=== PATIENT | female | born 1970 | race Hispanic/Latino ===

== ENCOUNTER 2022-05-08 16:00 | Inpatient (IN) | payer OTHER ==
[~2022-05-08] VITALS: Ht 157.5 cm; Wt 64.5 kg
[2022-05-31 13:38] LABS: BASOPHILS % (AUTO) 0.3 % (0.0-5.0); HEMATOCRIT 43.6 % (36-48); LYMPHOCYTES % (AUTO) 29.4 % (21.0-51.0); MEAN CORPUSCULAR HEMOGLOBIN 28.2 pg (27.0-33.0); MEAN CORPUSCULAR VOLUME 85.5 fL (79-99); MONOCYTES % (AUTO) 6.1 % (3.0-13.0); PLATELET COUNT (AUTO) 261 K/uL (130-400); RED CELL DISTRIBUTION WIDTH 13.2 % (11.0-15.5); WHITE BLOOD COUNT (AUTO) 6.5 K/uL (4.8-10.8)
[2022-05-31] MEDS: CALDOLOR 800MG+NS 250ML 250 ML IV SCH (14:30)
[2022-05-31] MEDS: CEFAZOLIN SODIUM 1 GM VIAL IVP SCH (14:30)
[2022-06-01 09:06] VITALS: BP 138/75
[2022-06-01] MEDS ORDERED: BIOTIN PO (09:30)
[2022-06-01] MEDS ORDERED: GARLIC PO (09:30)
[2022-06-01] MEDS ORDERED: VITAMIN D PO (09:30)
[2022-06-04] VITALS (23 sets, daily range): BP systolic 94–148; BP diastolic 52–71
[2022-06-04] MEDS ORDERED: MORPHINE PF 100MG/10ML AMP IV ONE (05:13)
[2022-06-04] MEDS ORDERED: LACTATED RINGERS 1000ML 1,000 ML IV ONE (06:27)
[2022-06-04] MEDS ORDERED: LIDOCAINE PF 100MG/5ML (2%) SYRINGE 5ML ONE (07:04)
[2022-06-04] MEDS ORDERED: ROCURONIUM 10MG/1ML SYR 10 MG/ML ML ONE (07:05)
[2022-06-04] MEDS ORDERED: PROPOFOL 10 MG/ML 20ML VIAL IV ONE (07:05)
[2022-06-04] MEDS ORDERED: FENTANYL CITRATE PF 50 MCG/1 ML 2ML VIAL ONE (07:10)
[2022-06-04] MEDS ORDERED: MIDAZOLAM HCL 1 MG/ML 2ML VIAL ONE (07:10)
[2022-06-04] MEDS ORDERED: CEFAZOLIN SODIUM 2 GM VIAL IV ONE (07:20)
[2022-06-04] MEDS ORDERED: ONDANSETRON 4MG INJ ONE (07:24)
[2022-06-04] MEDS ORDERED: DEXAMETHASONE SOD PHOSPHATE 10MG/ML 1ML VIAL ONE (08:03)
[2022-06-04] MEDS ORDERED: NEOSTIGMINE 5MG/5ML SYR IV ONE (08:36)
[2022-06-04] MEDS ORDERED: GLYCOPYRROLATE 1 MG/5 ML SYRINGE ONE (08:36)
[2022-06-04] MEDS ORDERED: DIPH,PERTUSS(ACELL),TET VAC/PF 0.5 ML VIAL IM SCH (09:30)
[2022-06-04] MEDS ORDERED: HYDROCODONE/ACETAMINOPHEN 5/325 MG TAB PO PRN (09:30)
[2022-06-04] MEDS ORDERED: ONDANSETRON 4MG INJ IVP PRN (09:30)
[2022-06-04] MEDS ORDERED: BISACODYL 10 MG SUPP.RECT RC PRN ×2 (09:30)
[2022-06-04] MEDS ORDERED: PROMETHAZINE HCL 25 MG/ML 1ML AMPULE IM PRN ×3 (09:30→11:00)
[2022-06-04] MEDS ORDERED: MEPERIDINE-PF 75 MG/ML SYG IM PRN ×2 (09:30→11:00)
[2022-06-04] MEDS ORDERED: SIMETHICONE 80 MG TAB.CHEW PO PRN (09:30)
[2022-06-04] MEDS ORDERED: DOCUSATE SODIUM 100 MG CAP PO PRN (09:30)
[2022-06-04] MEDS ORDERED: ACETAMINOPHEN WITH CODEINE 1 TAB TAB PO PRN (09:30)
[2022-06-04] MEDS: DEXTROSE 5 %-0.45 % NACL 1,000 ML IV PRN ×2 (10:31→17:56)
[2022-06-04] MEDS: ACETAMINOPHEN WITH CODEINE 1 TAB TAB PO PRN (10:31)
[2022-06-04] MEDS: CEFAZOLIN SODIUM 1 GM VIAL IVP SCH (14:30)
[2022-06-04] MEDS: CALDOLOR 800MG+NS 250ML 250 ML IV SCH ×2 (14:30→17:50)
[2022-06-04] MEDS: DOCUSATE SODIUM 100 MG CAP PO PRN (21:35)
[2022-06-04] MEDS: SIMETHICONE 80 MG TAB.CHEW PO PRN (21:35)
[2022-06-05] MEDS: CALDOLOR 800MG+NS 250ML 250 ML IV SCH (01:56)
[2022-06-05] MEDS: DEXTROSE 5 %-0.45 % NACL 1,000 ML IV PRN (04:01)
[2022-06-05 04:03] VITALS: BP 94/44
[2022-06-05 07:30] VITALS: BP 98/59
[2022-06-05] MEDS: ACETAMINOPHEN WITH CODEINE 1 TAB TAB PO PRN ×3 (07:37→19:43)
[2022-06-05] MEDS ORDERED: ESTRADIOL 0.1 MG/24 HR PATCH (WEEKLY) TD SCH (09:00)
[2022-06-05] MEDS: DOCUSATE SODIUM 100 MG CAP PO PRN ×2 (09:30→19:42)
[2022-06-05] MEDS: SIMETHICONE 80 MG TAB.CHEW PO PRN ×3 (09:30→19:42)
[2022-06-05] MEDS: IBUPROFEN 800 MG TAB PO SCH ×2 (09:30→16:59)
[2022-06-05 11:54] VITALS: BP 108/72
[2022-06-05 16:23] VITALS: BP 115/75
[2022-06-05] MEDS ORDERED: HYDROCODONE/ACETAMINOPHEN 5/325 MG TAB PO PRN (19:00)
[2022-06-05 19:22] VITALS: BP 116/74
[2022-06-05 22:49] VITALS: BP 123/73
[2022-06-06] MEDS: IBUPROFEN 800 MG TAB PO SCH ×2 (01:16→08:54)
[2022-06-06 02:36] VITALS: BP 126/76
[2022-06-06] MEDS: ACETAMINOPHEN WITH CODEINE 1 TAB TAB PO PRN (06:32)
[2022-06-06 07:20] VITALS: BP 115/66
[2022-06-06] MEDS: DOCUSATE SODIUM 100 MG CAP PO PRN (08:54)
[2022-06-06] MEDS: SIMETHICONE 80 MG TAB.CHEW PO PRN (08:54)
[2022-06-06 12:05] VITALS: BP 117/63
[2022-06-11] MEDS ORDERED: ESTRADIOL 0.1 MG/24 HR PATCH (WEEKLY) TD SCH (09:00)
== END 2022-06-06 12:15 | disposition home or self-care (01) | DRG 743 ==
LOC: DAHIP 06-04 05:54 → WSH 06-04 10:15
PROVIDERS: ADMIT Obstetrics & Gynecology; ATTEND Obstetrics & Gynecology
PROC: 0UT70ZZ Resection of Bilateral Fallopian Tubes, Open Approach (ICD-10-PCS; 2022-06-04)
PROC: 0UT20ZZ Resection of Bilateral Ovaries, Open Approach (ICD-10-PCS; 2022-06-04)
PROC: 0TNB0ZZ Release Bladder, Open Approach (ICD-10-PCS; 2022-06-04)
PROC: 0UT90ZZ Resection of Uterus, Open Approach (ICD-10-PCS; principal; 2022-06-04 07:19)
DX: N94.89 Other specified conditions associated with female genital organs and menstrual cycle (principal); N73.6 Female pelvic peritoneal adhesions (postinfective); Z20.822 Contact with and (suspected) exposure to COVID-19
CPT/HCPCS: 36415; 84703; 85025; 86850; 86900; 86901; 87426; 90715; A4344; G0378; J0690; J1100; J1741; J2001; J2175; J2250; J2274; J2405; J2550; J2704; J2710; J3010; J3490; J7120